=== PATIENT | female | born 1945 | race Caucasian/White ===

== ENCOUNTER 2016-03-22 16:46 | Emergency (ER) | payer MEDICARE, OTHER ==
[~2016-03-22] VITALS: Ht 162.6 cm; Wt 70.0 kg
[~2016-03-22 16:46] MED LIST: AMLO-145 PO; ASPI-664 PO; CALC-223 PO; HYDR-845 PO; LORA2ORA2 PO; LOSA1TAB3 PO; ONDA4TAB35 PO; RABE20TA5 PO; ROSU5TAB5 PO
[2016-03-22 16:55] VITALS: Ht 162.6 cm; Wt 70.0 kg
[2016-03-22 20:37] LABS: ADD UMIC YES; URINE BILIRUBIN (Dip) NEGATIVE (NEGATIVE); URINE BLOOD (Dip) 1+ (NEGATIVE); URINE COLOR AMBER (YELLOW); URINE KETONES (Dip) TRACE (NEGATIVE); URINE LEUKOCYTE ESTERASE (Dip) TRACE (NEGATIVE); URINE NITRITE (Dip) POSITIVE (NEGATIVE); URINE TOTAL PROTEIN (Dip) 2+ (NEGATIVE); URINE UROBILINOGEN (Dip) 4.0 E.U./dL (0.1-1.0)
[2016-03-22 21:01] LABS: BACTERIA,URINE FEW; TRANSITIONAL EPI CELLS,URINE FEW
[2016-03-22] MEDS ORDERED: CEPH-443 PO (21:17)
--- NOTE | 2016-03-22 21:17 | ERD ---
ER Documentation Chief Complaint Date/Time DATE: 03/22/16 TIME: 21:14 Chief Complaint dysuria today HPI This is 70-year-old female who presents to the emergency department today for complaints of burning and pain with urination. Patient states that a couple weeks ago she went to see her primary care doctor and was given Cipro for 5 days. She continued with her symptoms and was then given Cipro for 10 days. Patient states she felt better for a while but now has burning and pain with urination again. She states she has been taking AZO. Denies any fevers or chills or back pain. ROS All systems reviewed and are negative except as per history of present illness. Medications Home Meds Active Scripts Phenazopyridine Hcl* (Pyridium*) 200 Mg Tab, 200 MG PO TID Y for URINARY PAIN, # 6 TAB Prov:SILVIA PERALTA PA-C 03/22/16 Cephalexin* (Keflex*) 500 Mg Capsule, 500 MG PO QID for 7 Days, CAP Prov:SILVIA PERALTA PA-C 03/22/16 Ondansetron Hcl* (Zofran* ODT) 4 mg -ODT Tab.disper, 4 MG PO Q6 Y for NAUSEA AND /OR VOMITING, #30 TAB Prov:TRICIA STORM MD 05/19/15 Reported Medications Calcium Carbonate-Vitamin D3 (Calcium 1,000 + D3) 1 Each Tablet, 1 EACH PO DAILY 12/02/12 Aspirin (Aspirin) 81 Mg Tablet.dr, 81 MG PO 3X/WEEK 12/02/12 Lorazepam* (Ativan* Intensol) 2 Mg/1 Ml Oral.conc, 1 MG PO HS, #1 12/02/12 Rosuvastatin Calcium* (Crestor*) 5 Mg Tablet, 5 MG PO HS, #1 12/02/12 Hydroxyzine Hcl* (Atarax*) 50 Mg Tab, 50 MG PO HS 12/02/12 Rabeprazole Sodium* (Aciphex*) 20 Mg Tablet.dr, 20 MG PO AC MEALS, #1 12/02/12 Losartan-Hydrochlorothiazide (Hyzaar) 1 Tab Tablet, 1 TAB PO, #1 12/02/12 Amlodipine Besylate* (Amlodipine Besylate*) 5 Mg Tablet, 5 MG PO DAILY 12/02/12 Allergies Allergies: Coded Allergies: morphine (Verified Allergy, Unknown, 08/10/14) PMhx/Soc History of Surgery: Yes (chest benign tumor removal ) Anesthesia Reaction: No Hx Neurological Disorder: No Hx Respiratory Disorders: No Hx Cardiac Disorders: No (HTN, HYPERCHOLESTEROLEMIA, chf ) Hx Psychiatric Problems: Yes (ANXIETY) Hx Miscellaneous Medical Probl: No Hx Alcohol Use: No Hx Substance Use: No Hx Tobacco Use: No Physical Exam Vitals Vital Signs Date Time Temp Pulse Resp B/P Pulse Ox O2 Delivery O2 Flow Rate FiO2 03/22/16 16:55 99.4 70 18 126/69 99 Physical Exam Const: No acute distress Head: Atraumatic Eyes: Normal Conjunctiva ENT: Normal External Ears, Nose and Mouth. Neck: Full range of motion..~ No meningismus. Resp: Clear to auscultation bilaterally Cardio: Regular rate and rhythm, no murmurs Abd: Soft, superpubic tenderness non distended. Normal bowel sounds. Right lower quadrant pain. No left lower quadrant pain. Skin: No petechiae or rashes Back: No midline or flank tenderness Ext: No cyanosis, or edema Neur: Awake and alert Psych: Normal Mood and Affect Results 24 hrs Laboratory Tests Test 03/22/16 20:00 Urine Bacteria FEW Urine Bilirubin NEGATIVE Urine Clarity CLEAR Urine Color RADHA Urine Glucose 0.1%% Urine Hemoglobin 1+ Urine Ketones TRACE Urine Leukocyte Esterase TRACE Urine Microscopic RBC 2-5/HPF Urine Microscopic WBC >50/HPF Urine Nitrite POSITIVE Urine Specific [place] 1.025 Urine Total Protein 2+ Urine Transitional Epithelial Cells FEW Urine Urobilinogen 4.0 E.U./dL Urine WBC Clumps FEW Urine pH 5.0 Procedures/MDM This 70-year-old female who presents the emergency department today complaining of serious and frequency. Patient has recently been treated with Cipro on 2 separate occasions. I did obtain a UA. UA shows trace leukocyte Estrace and positive nitrates with greater than 50 white blood cells. I will give the patient a prescription for Keflex. I also sent the patient's urine for culture given her continued symptoms of taking Cipro. She was afebrile and otherwise well-appearing. Low suspicion for pyelonephritis or nephrolithiasis. Also the patient perception for Pyridium. At this time the patient is stable for discharge and outpatient management. Patient should follow up with their PCP in the next 1-2 days. They may return to the emergency department sooner for any persistent or worsening of symptoms. Patient understood and agreed with the plan. Departure Diagnosis: Primary Impression: UTI (urinary tract infection) Urinary tract infection type: site unspecified Hematuria presence: without hematuria Qualified Code: N39.0 - Urinary tract infection without hematuria, site unspecified Condition: SILVIA Hickman PA-C Mar 22, 2016 21:17
[2016-03-22] MEDS ORDERED: PHEN-538 PO (21:18)
[2016-03-22 21:27] VITALS: BP 132/67; PULSE 77; RESP 18; TEMP 98
== END 2016-03-22 21:31 | disposition home or self-care (01) ==
LOC: FTE 16:46
DX: N39.0 Urinary tract infection, site not specified (principal); I10 Essential (primary) hypertension; I50.9 Heart failure, unspecified; Z79.82 Long term (current) use of aspirin
CPT/HCPCS: 81001; 81003; 87086; 99283